=== PATIENT | female | born 1970 | race Caucasian/White ===

== ENCOUNTER 2023-08-22 11:08 | Emergency (ER) | payer BC, SELFPAY ==
[2023-08-22 11:09] VITALS: BP 141/92
--- NOTE | 2023-08-22 12:25 | ED.GENMED ---
History of Present Illness
General
Chief Complaint: Musculo-Skeletal Complaint
Source: patient
Time Seen by Provider: 08/22/23 12:10
Travel History
Have you had any contact with someone who has COVID-19?: No
Do you have any symptoms of coronavirus? Fever > 100 degrees, chills, cough, shortness of breath, sore throat, loss of taste or smell, muscle aches, or headache?: No
History of Present Illness
History of Present Illness:
53-year-old female presenting to the emergency department for evaluation of atraumatic left knee pain that started around 1 week ago when she was at a concert stating she started to feel some discomfort but this gradually dissipated. Yesterday she
was at a picnic and went to stand up and felt another pop in the left lateral aspect of her knee with continuous pain that worsens when straightening completely but states currently improved when sitting with her knee flexed. Patient did take 600
mg of ibuprofen prior to arrival which she states did take the edge off. She denies any fevers, rashes, erythema or any other concerns.
Past History
Past History
ED Past Medical History: Arrthythmia (PVCs) and Other (Menometrorrhagia)
ED Past Surgical History: and Tonsilectomy
Social History
Tobacco: Non-smoker
Alcohol: Occasional
Drug: None
Personal:
Living: with family
Employment: Employed
Family History
Family History: Other (Noncontributory)
Review of Systems
Review of Systems
All Other Systems: ROS reviewed and negative except as documented in HPI and ROS
Phy Exam
Physical Exam
Physical Exam:
GENERAL: Alert , in no apparent distress
EYE: conjunctiva clear
Head: Normocephalic atraumatic
NECK: Supple,
ENT: mmm.
LUNGS: no acute respiratory distress
NEUROLOGICAL: Alert and oriented
SKIN: Warm and dry, skin intact.
MUSCULOSKELETAL: Left knee: Mild soft tissue swelling with tenderness more along the anterolateral aspect of the patella. Increased pain with knee extension. No overlying erythema. Extremities otherwise warm and well-perfused and neurovascularly
intact.
PSYCH: Normal and appropriate interaction.
Scores
Heart Failure Risk
Heart Failure Risk Score: Not Applicable
Heart Score for Chest Pain Patients
STEMI patient?: Not applicable
Withdrawal Assessment of Alcohol
Withdrawal Assessment Completed?: Not applicable
Course
Orders/Labs/Results
Orders:
Orders
08/22/23 11:11
Knee, Left 4 or More Views [CR Knee - Left 4 Or More View*] Urgent
Comment:
Reason For Exam: pain
08/22/23 12:25
Delfin Wrap Left-Treatment ONCE
Vital Signs
Initial and Last Documented VS:
Initial Vital Signs
Temp Pulse Resp BP Pulse Ox
98.0 F 60 18 141/92 99
08/22/23 11:09 08/22/23 11:09 08/22/23 11:09 08/22/23 11:09 08/22/23 11:09
Last Documented Vital Signs
Temp Pulse Resp BP Pulse Ox
98.0 F 60 18 141/92 99
08/22/23 11:09 08/22/23 11:09 08/22/23 11:09 08/22/23 11:09 08/22/23 11:09
MDM/Problems Addressed
Differential Diagnosis Includes:
Meniscus injury, ligamentous injury, osteoarthritis, no concern for septic joint
MDM/Problems Addressed:
53-year-old female presenting to the emergency department for evaluation of left knee pain x 1 day, started with mild symptoms a couple of days ago that resolved spontaneously. No trauma. No overlying signs of infection. Extremity is warm and
well-perfused. No calf edema or tenderness. X-ray was ordered from triage which does show osteoarthritic changes and a very small joint effusion. We did discuss risk versus benefit of joint aspiration however patient declines. Will provide her
with a short-term course of Percocet to use as needed for increased pain if still uncontrolled with NSAIDs/Tylenol. Information provided for orthopedics follow-up. Aware of return precautions to the ER.
*Radiology
Radiology exam reviewed: radiology read reviewed (Osteoarthritis and small joint effusion)
*Pulse Oximetry
Patient hypoxic: no
*Critical Care Note
Total Time (30-74mins, 75-104mins- exclusive of procedures): Not Applicable
ED Attending Note
-
Portions of this chart may have been created with voice recognition software.� Occasional wrong word or��sound alike� substitutions may have occurred due to the inherent limitations of voice recognition software.
Discharge Plan
Departure
Patient Disposition: Home (Routine Discharge)
Date of Disposition: 08/22/23
Time of Disposition: 12:25
Patient with high blood pressure during this ER visit?: Yes
Discharge Problem:
Left knee pain
Instructions: Knee Pain (DC)
Prescriptions:
New
oxycodone-acetaminophen [Percocet] 5-325 mg Tablet
1 tab PO Q6HPRN PRN (Reason: pain) Qty: 5 0RF
Referrals:
Octavio Simeon MD [Active] - (Ortho)
Interventions
Interventions:
*Nursing Disposition Last Done: 08/22/23 12:54
ED-Musculoskeletal Assessment Last Done: 08/22/23 12:52
Discharge Date and Time
Discharge Date/Time: 08/22/23 12:54
Print Language: NEPALI
== END 2023-08-22 12:54 | disposition home or self-care (01) ==
LOC: EMR 11:08
PROVIDERS: EMERGENCY PHYSICIAN Emergency Medicine; FAMILY PHYSICIAN Family Medicine
DX: M25.562 Pain in left knee (principal); M25.462 Effusion, left knee; M17.12 Unilateral primary osteoarthritis, left knee; R03.0 Elevated blood-pressure reading, without diagnosis of hypertension
CPT/HCPCS: 99283; 73564

== ENCOUNTER 2023-10-22 10:11 | Day surgery (SDC) | payer BC, SELFPAY ==
[2023-10-15 13:59] VITALS: BMI 36.9
--- NOTE | 2023-10-15 14:48 | PTCARENOTE ---
EKG from 10/15/23 shows nonspecific T wave abnormality. See scanned prior EKG from 03/31/22 showing prior history.
[2023-10-22] VITALS (11 sets, daily range): BP systolic 111–134; BP diastolic 67–80; BMI 36.9
[2023-10-22] MEDS: NORMOSOL-R 1000 IV (11:40)
[2023-10-22] MEDS: CELEBREX 200 MG PO (11:56)
[2023-10-22] MEDS: TYLENOL 1000 MG PO (11:56)
== END 2023-10-22 17:05 | disposition home or self-care (01) ==
LOC: SDS 10:11
PROVIDERS: ATTENDING PHYSICIAN Specialist; FAMILY PHYSICIAN Family Medicine; OTHER PHYSICIAN Internal Medicine Interventional Cardiology
DX: M22.42 Chondromalacia patellae, left knee (principal); M23.42 Loose body in knee, left knee
CPT/HCPCS: 29877; 36415; 93005

== ENCOUNTER → 2024-05-15 15:24 | Outpatient (REF) | payer BC, SELFPAY | LOC: MRI 3T 15:24 | PROVIDERS: ATTENDING PHYSICIAN Surgery Surgical Oncology; FAMILY PHYSICIAN Family Medicine | DX: D13.4 Benign neoplasm of liver (principal) | CPT/HCPCS: 74183; A9575 ==